=== PATIENT | male | born 1965 | race Caucasian/White ===

== ENCOUNTER → 2021-01-25 | Outpatient (CLI) | payer BC, SELFPAY | END | disposition home or self-care (01) | PROVIDERS: PCP Family Medicine; Referring Provider Dermatology; Visit Provider Dermatology | DX: L02.01 Cutaneous abscess of face (principal); L82.1 Other seborrheic keratosis; D48.5 Neoplasm of uncertain behavior of skin | CPT/HCPCS: 87070; 87077; 87205 ==

== ENCOUNTER 2021-10-16 08:18 | Outpatient (CLI) | payer BC, SELFPAY ==
--- NOTE | 2021-06-20 23:00 | HP.PCM_ITS ---
History and Physical Date of Admission: 06/21/21 HISTORY OF PRESENT ILLNESS 56 year old man presents for evaluation for TBSE. He has concerns about an infected cystic lesion right christian. He saw Dermatology on 01/25/21. An I&D was performed in the office. He was placed on Doxycycline for 2 weeks. Right now the area involving this infected cystic lesion is nontender. No further evidence of infection. He also has concerns about a lesion on the dorsal ulnar aspect proximal left forearm. It has increased in size over the last several months and has developed irregular borders. He denies bleeding. He denies fever. He denies trauma. He presents at this time for further evaluation and treatment. PAST MEDICAL HISTORY Infected skin lesion Neoplasm of skin of forearm Neoplasm of skin of christian region PAST SURGICAL HISTORY No pertinent past surgical history ALLERGIES llergies No Known Allergies MEDICATIONS NK FAMILY HISTORY Other - CVA (cerebral vascular accident), Cancer, Diabetes SOCIAL HISTORY Smoking Status: Never smoker alcohol intake: current substance use type: does not use REVIEW OF SYSTEMS General - Denies fever, fatigue, and weight loss. Eyes - Denies cataracts and glaucoma. ENT - Denies nasal congestion and sore throat. Endocrine - Denies excessive thirst and urination. Skin - Denies skin cancer. Has infected cystic lesion right christian with recent I&D. Has enlarging lesion dorsal ulnar aspect proximal left forearm. Musculoskeletal - Denies joint pain, joint stiffness, weakness of muscles and joints, back pain, and arthritis. Neuro - Denies headaches. Cardiovascular - Denies chest pain, fatigue, and shortness of breath with exertion. Psych - Denies anxiety and depression. Respiratory - Denies chronic cough and shortness of breath. Gastrointestinal - Denies nausea, vomiting, diarrhea, and constipation. Hematologic - Denies abnormal bruising and bleeding. Genitourinary - Denies hematuria and urinary frequency. PHYSICAL EXAMINATION .General - Alert and Oriented HEENT - PERRL. EOMI. Throat is clear. On the right christian is a cystic lesion that measures 1 cm. A recent I&D was done on 01/25/21. He was treated with Doxycycline. The inflammation has subsided. The lesion is nontender. No ulceration. No other suspicious lesions noted. Neck - Supple and nontender. No cervical adenopathy. No suspicious lesions noted. Lungs - Clear to auscultation. Heart - Regular rate and rhythm. Abdomen - Soft and nondistended. Extremities - FROM. No axillary adenopathy. Radial pulses are palpable. On the dorsal ulnar aspects proximal left forearm is a lesion that measures 7 mm. It has a cutaneous horn component. Lesion has irregular borders. Is raised in configuration. No ulceration. Lesion is nontender. No other suspicious lesions noted. Neuro - CN II-XII grossly intact. Psych - Normal mood and affect. ASSESSMENT 1. 1 cm infected cystic lesion right christian, s/p I&D. 2. 7 mm cutaneous horn lesion dorsal ulnar aspect proximal left forearm. PLAN Recommend excision of these two lesions (infected cystic lesion right christian, and dorsal ulnar aspect proximal left forearm) and send them to Pathology for analysis to rule out carcinoma. Will also send some tissue right christian to Microbiology for culture. A positive culture will necessitate antibiotic therapy. Will send the left forearm lesion to Pathology as a frozen section. It will be a full thickness excision since there is a cutaneous horn component. If carcinoma is present, then further excision will be done with local skin flap reconstruction. For the right christian lesion, I anticipate some of the skin will be excised which will include the cyst sac. If the cyst sac is not aggressively excised, then can anticipate recurrence of the cystic lesion. Depending on how much skin is excised will determine if a local skin flap is necessary. Surgery will be done under local anesthesia and IV sedation on an outpatient basis. Patient was informed of the risks and complications of the procedure including alternatives to surgery. These were discussed with the patient personally. Patient voices understanding and wishes to proceed. Some of the risks and complications were included in a form from the [employer]. We discussed the current risks associated with COVID-19. While it is understood that there is a community spread of COVID-19, the risk of kate COVID-19 while at [facility] ([facility]) is very low; however, the risk cannot be completely mitigated because of the community spread of the disease. We discussed in detail the risk of exposure to and/or potential harm posed by the COVID-19 virus with having a surgery/procedure at this time versus the risk of delaying the surgery/procedure. It is not possible to know either the risk of delaying the surgery or procedure or chance of getting an infection with perfect accuracy, but a joint decision was made to proceed at this time with the scheduled surgery/procedure as indicated on the consent form. Patient was noti fied that we will need to comply with any screening or testing [facility] wishes to perform or that surgery may be delayed for any positive results. Procedure Criteria Procedure Type: Elective COVID Risk Discussion: The surgeon/proceduralist and patient have discussed in detail the risk of exposure to and/or potential harm posed by the COVID-19 virus with having a surgery/procedure at this time versus the risk of delaying the surgery/procedure. It is not possible to know either the risk of delaying the surgery or procedure or chance of getting an infection with perfect accuracy, but a joint decision was made between the patient and the surgeon/proceduralist to proceed at this time with the scheduled surgery/procedure as indicated on the consent form.
== END 2021-10-16 23:59 | disposition home or self-care (01) ==
LOC: SDC 08:19
PROVIDERS: PCP Family Medicine; Visit Provider Surgery
DX: Z01.818 Encounter for other preprocedural examination (principal)

== ENCOUNTER 2021-10-16 08:26 | Outpatient (CLI) | payer BC, SELFPAY | END 2021-10-16 23:59 | disposition home or self-care (01) | LOC: SDC 08:26 | PROVIDERS: PCP Family Medicine; Visit Provider Surgery | DX: Z01.818 Encounter for other preprocedural examination (principal) ==